=== PATIENT | female | born 1970 | race Caucasian/White ===

== ENCOUNTER 2021-12-23 18:17 | Emergency (ER) | payer SELFPAY ==
[~2021-12-23] VITALS: Ht 160 cm; Wt 86.2 kg
[2021-12-23 18:22] VITALS: BP 158/86
[2021-12-24 00:10] LABS: HEMATOCRIT. 43.5 % (36.0-48.0); HEMOGLOBIN. 14.7 g/dL (12.0-16.0); MEAN CORPUSCULAR HEMOGLOBIN 29.1 pg (28.0-32.0); MEAN CORPUSCULAR VOLUME 86.2 fL (81.0-99.0); MEAN PLATELET VOLUME 8.8 fl (7.4-10.4); PLATELET 213 x1000/uL (130-400); RED BLOOD CELL COUNT 5.04 mill/uL (4.2-5.4)
[2021-12-24 00:12] LABS: CLARITY URINE CLOUDY (CLEAR); COLOR URINE DARK YELLOW (YELLOW); KETONES URINE TRACE (NEGATIVE); LEUKOCYTE ESTERASE URINE 1+ (NEGATIVE); NITRITE URINE NEGATIVE (NEGATIVE); OCCULT BLOOD URINE 3+ (NEGATIVE); PH URINE 5.5 (4.5-8.0); PROTEIN URINE 4+ (NEGATIVE); SPECIFIC GRAVITY URINE 1.024 (1.005-1.030)
[2021-12-24 00:34] LABS: CHLORIDE 98 mEq/L (98-107)
[2021-12-24] MEDS ORDERED: CEPH500T MT (02:46)
[2021-12-24] MEDS ORDERED: IBUP-2029 MT (02:46)
[2021-12-24] MEDS ORDERED: INSULIN REGULAR (HUMULIN R) 300UNITS/3ML VIAL SUBCUT ONE (03:00)
[2021-12-24 05:49] LABS: PLATELET ESTIMATE NORMAL
== END 2021-12-24 03:02 | disposition home or self-care (01) ==
LOC: ER 18:17
DX: N30.00 Acute cystitis without hematuria (principal); E11.65 Type 2 diabetes mellitus with hyperglycemia; I10 Essential (primary) hypertension; Z79.4 Long term (current) use of insulin
CPT/HCPCS: 36415; 74176; 80053; 81003; 85025; 99284